=== PATIENT | male | born 1945 | race Caucasian/White ===

== ENCOUNTER 2019-11-27 07:39 | Outpatient (CLI) | payer MEDICARE, SELFPAY ==
--- NOTE | ~2019-11-27 | US_ITS ---
EXAMINATION: US carotid duplex BI DATE: 11/27/2019 08:19 INDICATION: Left carotid bruit. Transient ischemic attack. TECHNIQUE: Grayscale, color Doppler, and pulsed Doppler images of the cervical carotid arteries were obtained. The degree of vessel stenosis is placed in one of the following categories: normal, <50%, 5 0-69%, >=70% but less than near-occlusion, near-occlusion, or total occlusion. Note that percent sten osis relative to normal distal artery lumen diameter is indirectly measured from velocity measurement s as described by Caden, et al. Radiology 2003; 229:340-346. COMPARISON: None. FINDINGS: There is an arrhythmia. RIGHT: The right common carotid artery (CCA) peak systolic velocity (PSV) is 82 cm/s. The right internal car otid artery (ICA) PSV is 142 cm/s. The right ICA end-diastolic velocity (EDV) is 22 cm/s. The right I CA/CCA PSV ratio is 1.7. Grayscale and color Doppler images yield an estimate of >=50% diameter reduc tion from plaque in the ICA. There is antegrade flow in the right vertebral artery. LEFT: The left CCA PSV is 98 cm/s. The left ICA PSV is 158 cm/s. The left ICA EDV is 25 cm/s. The left ICA/ CCA PSV ratio is 1.6. Grayscale and color Doppler images yield an estimate of >=50% diameter reductio n from plaque in the ICA. There is antegrade flow in the left vertebral artery. IMPRESSION: 1. 50-69% stenosis in the right internal carotid artery. 2. 50-69% stenosis in the left internal carotid artery. 3. Arrhythmia. Reviewed, dictated and finalized at location A.
== END 2019-11-27 07:40 | disposition home or self-care (01) ==
PROVIDERS: PCP Internal Medicine; Visit Provider Internal Medicine Cardiovascular Disease
DX: I65.23 Occlusion and stenosis of bilateral carotid arteries (principal); R09.89 Other specified symptoms and signs involving the circulatory and respiratory systems; I49.9 Cardiac arrhythmia, unspecified
CPT/HCPCS: 93880

== ENCOUNTER 2019-12-14 01:25 | Outpatient (CLI) | payer MEDICARE, SELFPAY ==
[2019-12-14 17:42] LABS: SARS-CoV-2 RNA PCR Negative
== END 2019-12-14 01:26 | disposition home or self-care (01) ==
LOC: ANHCOVIDDT 01:25
PROVIDERS: PCP Internal Medicine; Visit Provider Specialist
DX: Z01.812 Encounter for preprocedural laboratory examination (principal); Z20.828 Contact with and (suspected) exposure to other viral communicable diseases
CPT/HCPCS: 87635; C9803; U0003

== ENCOUNTER 2019-12-16 02:57 | Day surgery (SDC) | payer MEDICARE, SELFPAY ==
[2019-12-15 14:40] VITALS: BMI 31.4
[2019-12-16] VITALS (8 sets, daily range): BP systolic 124–184; BP diastolic 64–88; PULSE 61–75; RESP 14–17; TEMP 36.8; O2SAT 94–100
[2019-12-16 07:31] LABS: Basophils Absolute Auto 0.1 K/mm3 (0.0-0.1); Basophils Percent Auto 1.1 % (0.2-1.2); Eosinophils Absolute Auto 0.5 K/mm3 (0-0.3); Eosinophils Percent Auto 4.5 % (0-4.4); Hematocrit 44.7 % (42.0-52.0); Hemoglobin 15.4 g/dL (14.0-18.0); Immature Granulocyte Absolute 0.05 K/mm3 (0.00-0.031); Immature Granulocyte Percent A 0.5 % (0-0.5); Lymphocytes Absolute Auto 1.75 K/mm3 (0.9-3.2); Lymphocytes Percent Auto 16.5 % (18.3-44.2); Mean Corpuscular HGB Conc 34.5 g/dl (32-36); Mean Corpuscular Hemoglobin 31.9 pg (26-34); Mean Corpuscular Volume 92.5 fl (80-100); Mean Platelet Volume 10.6 fl (7.4-10.4); Monocytes Absolute Auto 1.2 K/mm3 (0.1-0.6); Monocytes Percent Auto 11.5 % (2.6-8.5); Neutrophils Percent Auto 65.9 % (45.5-73.1); Platelet Count Result 297 k/mm3 (150-375); Red Blood Count 4.83 M/mm3 (4.6-6.20); Red Cell Distribution Width 13.3 % (11.5-14.5); White Blood Count 10.6 K/mm3 (4.5-10.0)
[2019-12-16 07:41] LABS: INR 1.1; Prothrombin Time 13.7 Seconds (11.1-14.7)
[2019-12-16 07:45] LABS: Anion Gap 9 mmol/L (8-16); Blood Urea Nitrogen 17 mg/dL (9-20); Calcium 10.2 mg/dL (8.4-10.2); Carbon Dioxide 30 mmol/L (22-30); Chloride 102 mmol/L (98-107); Estimated CRCL calculation 78 ml/min; Estimated Glomerular Filt Rate > 60; Glucose 164 mg/dL (75-110); Potassium 4.1 mmol/L (3.4-5.0); Sodium 141 mmol/L (137-145)
--- NOTE | 2019-12-16 08:52 | WPDMODSED ---
Moderate Sedation Note-Pt Data Patient Data Diagnosis: Abnormal nuclear stress test? Coronary artery disease mild aortic valve stenosis atrial fibrillation Present Complaint: this is a 74-year-old man with chronic atrial fibrillation and mild aortic stenosis apparently reporting symptoms of increasing shortness of breath. Because of this a nuclear stress test was done as an outpatient which was remarkable for apical lateral reversible defect. Because of this angiography was recommended. Procedure to be performed/Plan: Coronary angiography Allergies Allergy/AdvReac Type Severity Reaction Status Date / Time baclofen Allergy Unknown syncope Verified 12/03/19 08:53 Home Medications Medication Instructions Recorded Confirmed Type clonazepam 0.5 mg tablet 0.5 mg PO TID tablet 02/19/19 12/15/19 History indomethacin 50 mg capsule 50 mg PO TID PRN #90 cap 10/07/19 12/15/19 Rx apixaban 5 mg tablet 5 mg PO BID #60 tablet 11/12/19 12/15/19 Rx metoprolol tartrate 25 mg tablet 12.5 mg PO BID tablet 12/03/19 12/15/19 History allopurinol 300 mg tablet 300 mg PO DAILY #90 tablet 12/10/19 12/15/19 Rx nifedipine 30 mg tablet,extended 30 mg PO DAILY #90 tablet 12/15/19 12/15/19 Rx release Current Medications: Active Medications Sodium Chloride (Normal Saline Iv) 500 mls @ 100 mls/hr IV CONT .Q5H JACQUELINE Sedation/Anesthesia: No previous sedation/anesthesia problems (including family history). [facility] Past Medical History Medical History (Updated 11/12/19 @ 09:42 by Ronak Madrigal DO) Afib Anxiety Cataract DM w/o complication type II Erectile dysfunction Gout HLD (hyperlipidemia) HTN (hypertension) Mumps Osteoarthritis Surgical History Surgical History (Updated 02/19/19 @ 14:38 by Joy Taylor CMA) H/O cataract extraction H/O hand surgery finger joint replacements History of carpal tunnel release History of eyelid surgery History of knee replacement BL knees History of neck surgery History of repair of rotator cuff Hx of eye surgery BL lens implants Family History Family History (Updated 02/19/19 @ 08:26 by Joy Taylor CMA) Father Family history of lung cancer, Onset Age: 61 Family history of throat cancer, Onset Age: 61 Mother Hypertension HLD (hyperlipidemia) History of open heart surgery TIA (transient ischemic attack) Social History Social History (Updated 02/19/19 @ 14:39 by 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) Smoking status: Never smoker Second hand tobacco smoke exposure: No Alcohol intake: never Substance use: never Substance use type: does not use Living arrangements: alone Gender identity (if verbalized by the patient): Male Spiritual care concerns: No Mod Sed Physical Exam Physical Exam Pre Procedural Exam: Normal: Appearance, Neck, Throat, Airway, Lungs, Heart Size, Heart Rate, Neuro Exam and Extremities and Variation: Heart Rhythm ( irregularly irregular) Hours since solid foods: 12 Hours since liquid intake: 12 Internal Medicine - PN: Obj Da Vital Signs Vital Signs: Vital Signs - 24 hr 12/16/19 07:27 Temperature 36.8 C Pulse Rate 74 Respiratory Rate 14 Blood Pressure 184/86 H Pulse Oximetry 100 Meds/Results Medications: Active Medications Generic Name Dose Route Start Last Admin Trade Name Freq PRN Reason Stop Dose Admin Sodium Chloride 500 mls @ 100 mls/hr 12/16/19 05:50 Normal Saline Iv IV CONT .Q5H JACQUELINE Labs CBC & Chem 7: 12/16/19 07:23 12/16/19 07:23 Labs: Laboratory Results - last 24 hr 12/16/19 12/16/19 12/16/19 07:23 07:23 07:23 WBC 10.6 H RBC 4.83 Hgb 15.4 Hct 44.7 MCV 92.5 MCH 31.9 MCHC 34.5 RDW 13.3 Plt Count 297 MPV 10.6 H Immature Gran % (Auto) 0.5 Neut % (Auto) 65.9 Lymph % (Auto) 16.5 L [place] % (Auto) 11.5 H Eos % (Auto) 4.5 H Baso % (Auto) 1.1 Lymph # (Auto) 1.75 [place] # (Auto) 1.2 H Eos # (Auto
--- NOTE | 2019-12-16 09:21 | WPDCARDPROC ---
Cardiac Cath Procedure Note Date of procedure:: 12/16/19 Performing physician:: Elio Chao MD Indication:: exertional dyspnea mildly abnormal nuclear stress test atrial fibrillation mild aortic stenosis Brief clinical history:: this is a 74-year-old gentleman reporting symptoms of worsening exertional dyspnea. He is not previously known to have coronary disease. A nuclear stress test demonstrated apical lateral reversible defect prompting the recommendation for angiography. Echocardiogram has demonstrated normal left ventricular systolic function and mild aortic valve stenosis. Procedure Procedure performed:: Coronary angiography Angio-Seal to right femoral artery Sedation/Medication given:: fentanyl 50 mg Versed 2 mg case start time 0 900 case end time 9:15 a.m. sedation provided by Kaylah Cortes RN, trained observer Access site:: right femoral artery Estimated blood loss:: 15-20 cc Procedure note:: patient was brought to the cardiac catheterization lab in the postabsorptive state the right femoral triangle was prepared and draped in the usual fashion. Anesthesia was provided with 1% lidocaine infiltrated locally. Using the modified Seldinger technique the right femoral artery was punctured and a 5 [place] vascular sheath was placed. After this coronary angiography was carried out. I used a 5 [place] FL4 catheter to engage inject the left coronary artery. A 5 [place] JR4 catheter was used to engage inject the right coronary artery. The angiograms were then reviewed and the case was terminated. After this an angiogram was done of the femoral artery through the sheath and a 6 [place] Angio-Seal device was used to provide hemostasis. He left the catheterization lab in stable condition there were no apparent procedural complications and there was no evidence of a groin hematoma upon leaving the catholic priest. Findings:: Hemodynamics: Central aortic pressure was 162/82 the left main coronary artery and proximal LAD are heavily calcified. The left main is free of lesions. The left anterior descending is a moderate caliber artery extending down to and around the apex. There are mild luminal irregularities in the proximal 3rd of the LAD but no functionally significant lesions are seen despite the vessel being heavily calcified. Circumflex is a moderate caliber artery giving rise to the marginal branches. Most of the circumflex shows only modest luminal irregularities. A very high rather small 1st OM branch has a proximal 80% stenosis seen only in the AP caudal projection. The remainder of the circumflex has no significant disease. This branch that is described is very small the right coronary artery is a [id number] caliber vessel dominant to the posterior circulation the right coronary has modest luminal irregularities no functionally significant lesions are identified. The RPDA is normal the RPL is non diseased and relatively small Conclusion:: 1. mild coronary artery disease at this time with the only significant lesion being an 80% stenosis in the high 1st OM branch of the circumflex which is quite small. 2. Heavily calcified left main and proximal LAD 3. left ventricle was not study during this procedure as the patient had a recent echocardiogram in the office demonstrating modest aortic stenosis and normal left ventricular systolic function 4. successful Angio-Seal to provide hemostasis at the at the conclusion of the procedure Elio Chao MD [facility]
--- NOTE | 2019-12-16 12:33 | SUR.PHASEII ---
Pt. given post-procedure discharge education following cardiac cath. Pt. verbalizes understanding of discharge education. Pt. escorted to private vehicle via wheelchair in no apparent distress. Angioseal site noted to have no evidence of bleeding or hematoma upon discharge.
== END 2019-12-16 12:34 | disposition home or self-care (01) ==
PROVIDERS: PCP Internal Medicine; Visit Provider Specialist
PROC: 4A023N7 Measurement of Cardiac Sampling and Pressure, Left Heart, Percutaneous Approach (ICD-10-PCS; CPT 93452; principal; 2019-12-16 08:30)
DX: I25.10 Atherosclerotic heart disease of native coronary artery without angina pectoris (principal); R94.39 Abnormal result of other cardiovascular function study; R06.09 Other forms of dyspnea; I48.20 Chronic atrial fibrillation, unspecified; I35.0 Nonrheumatic aortic (valve) stenosis; Z79.01 Long term (current) use of anticoagulants; E11.9 Type 2 diabetes mellitus without complications; I10 Essential (primary) hypertension; M10.9 Gout, unspecified; F41.9 Anxiety disorder, unspecified; H26.9 Unspecified cataract
CPT/HCPCS: 36415; 80048; 85025; 85610; 93458; C1760; C1887; C1894; G0269; J1644; J2250; J3010; J7040

== ENCOUNTER 2020-07-11 12:04 | Outpatient (CLI) | payer MEDICARE, SELFPAY ==
[2020-07-11 12:49] LABS: Hematocrit 43.2 % (42.0-52.0); Hemoglobin 14.6 g/dL (14.0-18.0); Mean Corpuscular HGB Conc 33.8 g/dl (32-36); Mean Corpuscular Hemoglobin 32.1 pg (26-34); Mean Corpuscular Volume 94.9 fl (80-100); Mean Platelet Volume 10.8 fl (7.4-10.4); Platelet Count Result 261 k/mm3 (150-375); Red Blood Count 4.55 M/mm3 (4.6-6.20); Red Cell Distribution Width 14.3 % (11.5-14.5); White Blood Count 8.2 K/mm3 (4.5-10.0)
[2020-07-11 13:16] LABS: Anion Gap 8 mmol/L (8-16); Blood Urea Nitrogen 19 mg/dL (9-20); Carbon Dioxide 27 mmol/L (22-30); Chloride 105 mmol/L (98-107); Cholesterol 194 mg/dL (0-200); Estimated Glomerular Filt Rate 59; Glucose 115 mg/dL (75-110); HDL Direct 66 mg/dL; Potassium 4.1 mmol/L (3.4-5.0); Sodium 140 mmol/L (137-145); Triglycerides 69 mg/dL (<150); Uric Acid 6.6 mg/dL (3.5-8.5)
[2020-07-11 13:26] LABS: LDL Cholesterol Direct 105 mg/dL
[2020-07-11 13:43] LABS: Hemoglobin A1C 5.7 % (<5.7)
== END 2020-07-11 12:05 | disposition home or self-care (01) ==
LOC: ANHLAB 12:08
PROVIDERS: PCP Family Medicine; Visit Provider Family Medicine
DX: E11.9 Type 2 diabetes mellitus without complications (principal); Z13.220 Encounter for screening for lipoid disorders; E78.2 Mixed hyperlipidemia; M10.079 Idiopathic gout, unspecified ankle and foot; I10 Essential (primary) hypertension
CPT/HCPCS: 36415; 80048; 80061; 83036; 84550; 85027

== ENCOUNTER 2020-07-20 19:03 | Observation (INO) | payer MEDICARE, SELFPAY ==
--- NOTE | ~2020-07-20 | MR_ITS ---
EXAMINATION: MRA brain wo con DATE: 07/21/2020 12:19 INDICATION: Aphasia. TECHNIQUE: Magnetic resonance angiography (MRA) of the brain was performed without intravenous contra st with T1-weighted SPGR by the 3D [id number] technique. Maximum intensity projection 3D-reconstr uctions were obtained. COMPARISON: CTA 07/20/2020 FINDINGS: There is no significant stenosis of basilar artery or the posterior cerebral arteries. Right P1 poste rior cerebral artery segment is absent, a normal variant. The posterior communicating arteries are no rmal. There is no significant stenosis of the intracranial internal carotid arteries or anterior cere bral arteries. 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 Anterior communicating a rtery is normal. There is no aneurysm. IMPRESSION: 1. Acute total occlusion of a left M2 middle cerebral artery. Reviewed, dictated and finalized at location B.
--- NOTE | ~2020-07-20 | CT_ITS ---
EXAMINATION: CTA brain carotid DATE: 07/20/2020 19:45 CDT INDICATION: Aphasia TECHNIQUE: Computed tomographic angiography (CTA) of the head was performed without and with 100 mL O mnipaque-350 intravenous contrast. CTA of the neck was performed with intravenous contrast. The dose- length product was 1819.17 mGy-cm. Maximum intensity projection and volume rendered 3D-reconstruction s were created by the technologist on a separate workstation. COMPARISON: CT dated 10/24/2013. FINDINGS: HEAD CT/CTA: Mild generalized atrophy. There are chronic right frontal and left parietal infarctions. There are scattered moderate periventricular and subcortical white matter changes, most likely relat ed to small vessel ischemic disease (microangiopathy). No ventriculomegaly or midline shift. Basilar cisterns are patent. There is intracranial atherosclerosis. No acute intracranial hemorrhage, infarct ion, mass or mass effect. Mastoids are pneumatized. No depressed skull fractures. No significant abno rmality of the visualized paranasal sinuses. The vertebral arteries are symmetric. There is mild atherosclerotic changes of the cavernous segments of the internal carotid arteries without significant stenosis, occlusion or aneurysm. The anterior, middle and posterior cerebral arteries are symmetric. NECK CTA: There are scattered borderline sized cervical lymph nodes, likely reactive. No abnormality of the mucosal or parapharyngeal spaces. Thyroid gland is unremarkable. Lung apices are normal. There is cervical fusion at C3-C5. There is severe cervical spondylosis. There is 28% stenosis of the proximal right internal carotid artery relative to normal distal artery lumen diameter (NASCET criteria). There is 42% stenosis of the proximal left internal carotid artery relative to normal distal artery lumen diameter. IMPRESSION: 1. 28% stenosis of the proximal right internal carotid artery relative to normal distal artery lumen diameter (NASCET criteria). 2. 42% stenosis of the proximal left internal carotid artery relative to normal distal artery lumen d iameter. 3: No acute intracranial abnormality. 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 5: No significant intracranial vascular abnormality. Mild atherosclerotic changes without significant stenosis, occlusion or aneurysm. Reviewed, dictated and finalized at location A. IMPRESSION: 1. 28% stenosis of the proximal right internal carotid artery relative to eric l distal artery lumen diameter (NASCET criteria). 2. 42% stenosis of the proximal left internal carotid artery relative to normal distal artery lumen diameter. 3: No acute intracranial abnormality. 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 5: No significant intracranial vascular abnormality. Mild atherosclerotic valenzuela es without significant stenosis, occlusion or aneurysm.
--- NOTE | ~2020-07-20 | XR_ITS ---
XR chest 1V portable 07/20/2020 19:38 Indication: Dyspnea Procedure: AP portable chest Comparison: 11/12/2014 Findings: Cardiomegaly. Mild interstitial edema. No significant pleural effusion or pneumothorax. No acute osseous abnormality. Impression: 1: Cardiomegaly with mild interstitial edema. Reviewed, dictated and finalized at location A. Impression: 1: Cardiomegaly with mild interstitial edema.
[2020-07-20 18:59] VITALS: BP 178/91; PULSE 91; RESP 21; TEMP 36.7; O2SAT 96
--- NOTE | 2020-07-20 19:10 | ECG_ITS ---
Measurements Intervals [place] Rate: 83 P: MN: 0 QRS: 1 QRSD: 96 T: 77 QT: 375 QTc: 443 Interpretive Statements ATRIAL FIBRILLATION NONSPECIFIC ST & T-WAVE ABNORMALITY- LAT/HIGH LAT LEADS BASELINE ARTIFACT- I, II, III, AVR, AVL, AVF ABNORMAL ECG Electronically Signed On 07-20-2020 20:00:19 CDT by Aj Alcazar D.O.
--- NOTE | 2020-07-20 19:21 | ED.AMS ---
HPI - Altered Mental Status General Chief Complaint: Altered Mental Status Stated Complaint: ams Time Seen by Provider: 07/20/20 19:10 Source: patient Mode of arrival: ambulatory Limitations: no limitations History of Present Illness HPI narrative: Patient is a 74-year-old male brought in due to aphasia. According to daughter, he started talking gibberish when I called him around 9 AM this morning, so I came home at 1 PM to check up on him and continues to talk gibberish . Patient currently is a poor historian due to aphasia. According to daughter his only medical problem is high blood pressure and nothing else, he is very healthy he just had a heart cath done and was told that he had a heart of a 20-year-old . She also states that the patient had been drinking yesterday due to recent of his friend, and took his trazodone at night, which she states that she was reading up on it and could have caused his confusion. Related Data Home Medications Medication Instructions Recorded Confirmed aspirin 81 mg tablet,delayed 81 mg PO DAILY 06/23/20 07/14/20 release Allergies Allergy/AdvReac Type Severity Reaction Status Date / Time baclofen Allergy Unknown syncope Verified 07/20/20 19:50 Review of Systems Review of Systems: ROS unobtainable: Yes unobtainable due to medical condition and unobtainable due to mental status PMFSH Past Medical History Medical History Afib Anxiety BMI 27.0-27.9,adult Cataract Diabetes type 2, controlled DM w/o complication type II Erectile dysfunction Gout HLD (hyperlipidemia) HTN (hypertension) Insomnia Mumps Osteoarthritis Surgical History Surgical History H/O cataract extraction H/O hand surgery finger joint replacements History of carpal tunnel release History of eyelid surgery History of knee replacement BL knees History of neck surgery History of repair of rotator cuff Hx of eye surgery BL lens implants Family History Family History Father Family history of lung cancer, Onset Age: 61 Family history of throat cancer, Onset Age: 61 Mother Hypertension HLD (hyperlipidemia) History of open heart surgery TIA (transient ischemic attack) Social History Social History Second hand tobacco smoke exposure: No Alcohol intake: never Substance use: never Substance use type: does not use Gender identity (if verbalized by the patient): Male Spiritual care concerns: No Exam Const: General: confusion Orientation/consciousness: patient oriented x3 Limitations: altered mental status HENMT: Head: normal to inspection, normocephalic and atraumatic Ears: hearing grossly normal bilaterally, TM normal on the right and TM normal on the left General nose exam: Normal external nose present, Normal nares present and No nasal discharge present Face and sinus: normal facial exam Mouth: Yes Normal oral and palatal mucosa present, Yes lip normal, Yes tongue normal and Yes oropharynx normal Throat: posterior oropharynx normal, tonsils normal and uvula midline Eyes: General: appearance normal, both eyes and all related structures Pupils: Equal, round and reactive pupils present EOM: EOMs intact bilaterally Neck: Neck: normal visual inspection, full ROM, no lymphadenopathy and no meningeal signs Chest: Chest palpation & inspection: normal inspection of the chest Resp: Effort & Inspection: normal respiratory effort, able to speak in complete sentences, no respiratory distress and not tachypneic Auscultation: clear to auscultation bilaterally, no crackles, no rales, no rhonchi and no wheezes Cardio: Rate: regular rate Rhythm: regular rhythm GI: Inspection: normal to inspection GI Palp: No abdominal tenderness, Yes Soft to palpation, N
[2020-07-20 19:50] LABS: Basophils Absolute Auto 0.1 K/mm3 (0.0-0.1); Basophils Percent Auto 1.3 % (0.2-1.2); Eosinophils Absolute Auto 0.6 K/mm3 (0-0.3); Eosinophils Percent Auto 5.6 % (0-4.4); Hematocrit 42.3 % (42.0-52.0); Hemoglobin 14.4 g/dL (14.0-18.0); Immature Granulocyte Absolute 0.04 K/mm3 (0.00-0.031); Immature Granulocyte Percent A 0.4 % (0-0.5); Lymphocytes Absolute Auto 1.59 K/mm3 (0.9-3.2); Lymphocytes Percent Auto 16.2 % (18.3-44.2); Mean Platelet Volume 11.1 fl (7.4-10.4); Monocytes Absolute Auto 1.1 K/mm3 (0.1-0.6); Neutrophils Absolute Auto 6.4 K/mm3 (1.3-6.7); Neutrophils Percent Auto 65.5 % (45.5-73.1); Platelet Count Result 241 k/mm3 (150-375); White Blood Count 9.8 K/mm3 (4.5-10.0)
[2020-07-20 20:01] LABS: Alanine Aminotransferase 22 U/L (4-50); Albumin Level 4.5 g/dL (3.5-5.1); Alkaline Phosphatase 79 U/L (38-126); Anion Gap 12 mmol/L (8-16); Aspartate Amino Transferase 33 U/L (17-59); Bilirubin,Total 0.4 mg/dL (0.2-1.3); Blood Urea Nitrogen 17 mg/dL (9-20); Calcium 10.4 mg/dL (8.4-10.2); Carbon Dioxide 22 mmol/L (22-30); Chloride 105 mmol/L (98-107); Estimated CRCL calculation 54 ml/min; Estimated Glomerular Filt Rate 59; Glucose 131 mg/dL (75-110); Potassium 3.8 mmol/L (3.4-5.0); Prothrombin Time 13.4 Seconds (11.1-14.7); Sodium 139 mmol/L (137-145)
[2020-07-20 20:02] LABS: Partial Thromboplastin Time 30.2 SECONDS (22.3-36.8)
[2020-07-20 20:04] LABS: Ethanol 16 mg/dL (<10)
[2020-07-20 20:12] LABS: Troponin I < 0.012 ng/mL (0.000-0.034)
[2020-07-20 20:39] VITALS: BP 146/96; PULSE 68; RESP 20; O2SAT 96
[2020-07-20] MEDS: ASPIRIN 81 MG CHEWABLE TABLET 324 MG PO (20:59)
[2020-07-20 21:28] LABS: Add Urine Microscopic? NO; Appearance Urine Clear (Clear); Bilirubin Urine Negative (Negative); Blood Urine Negative (Negative); Color Urine Colorless (Yellow); Glucose Urine UA Negative (Negative); Ketones Urine Negative (Negative); Leukocyte Esterase Ur Negative LEU/UL (Negative); Nitrate Urine Negative (Negative); Protein Urine Negative (Negative); Specific Grav Ur 1.017 (1.001-1.035); Urobilinogen Urine Negative mg/dL (<2.0)
--- NOTE | 2020-07-20 22:06 | PM.IMHP ---
H&P: HPI History of Present Illness Date/Time: 07/20/20 22:06 Chief Complaint: Altered speech Narrative: This is a 74-year-old male with past medical history significant for hypertension, gout, degenerative joint disease, bilateral knee replacement. Patient was recently started on trazodone for sleep patient is unable to give any history due to altered mental status patient is incoherent not making sense his long-time friend/ that is sitting next to him states that patient was drinking all day the day before and just had been started on these new medication which is trazodone. Today in the morning he was doing okay prior to her going to work at around noon time she call him and he was not making sense on the phone speaking gibberish she thought he was playing a joke however when patient continue on a 2nd call she realized that something must be wrong and decided to come home and take him to the hospital. Patient has been his usual state of health just prior to these I am unable to obtain any history from the patient most of the history has been obtained through his and emergency room medical records. Preliminary workup was significant for CT of head with old strokes in the frontal and parietal regions. A CBC and BMP were unremarkable. states that the patient should be on a blood thinner however he does not take it. Review of Systems Review of Systems: Narrative: History has been obtained from a medical records ROS unobtainable: Yes unobtainable due to medical condition PMFSH Past Medical History Medical History Afib Anxiety BMI 27.0-27.9,adult Cataract Diabetes type 2, controlled DM w/o complication type II Erectile dysfunction Gout HLD (hyperlipidemia) HTN (hypertension) Insomnia Mumps Osteoarthritis Surgical History Surgical History H/O cataract extraction H/O hand surgery finger joint replacements History of carpal tunnel release History of eyelid surgery History of knee replacement BL knees History of neck surgery History of repair of rotator cuff Hx of eye surgery BL lens implants Family History Family History Father Family history of lung cancer, Onset Age: 61 Family history of throat cancer, Onset Age: 61 Mother Hypertension HLD (hyperlipidemia) History of open heart surgery TIA (transient ischemic attack) Social History Social History Second hand tobacco smoke exposure: No Alcohol intake: never Substance use: never Substance use type: does not use Gender identity (if verbalized by the patient): Male Spiritual care concerns: No Meds Home Medications and Allergies Home Medications Medication Instructions Recorded Confirmed Type indomethacin 50 mg capsule 50 mg PO TID PRN #90 cap 04/08/20 07/14/20 Rx allopurinol 300 mg tablet 300 mg PO DAILY #90 tablet 06/10/20 07/14/20 Rx nifedipine 30 mg tablet,extended 30 mg PO DAILY #90 tablet 06/20/20 07/14/20 Rx release aspirin 81 mg tablet,delayed 81 mg PO DAILY 06/23/20 07/14/20 History release trazodone 50 mg tablet 50 mg PO QHS PRN #30 tablet 07/14/20 07/14/20 Rx Allergies Allergy/AdvReac Type Severity Reaction Status Date / Time baclofen Allergy Unknown syncope Verified 07/20/20 19:50 Vital Signs Vital Signs - 24 hr 07/20/20 18:59 07/20/20 20:39 Temperature 98.0 F Pulse Rate 91 68 Respiratory Rate 21 H 20 Blood Pressure 178/91 H 146/96 H Pulse Oximetry 96 96 Exam Narrative: Exam Narrative: Patient is laying in gurney Const: General: comfortable, no acute distress, well developed, alert, awake, Physically active and other (Fidgety) Nutritional Appearance: average body habitus Orientation/consciousness: oriented to person and oriented to place HENMT:
[2020-07-20 23:24] VITALS: BP 181/100; PULSE 68; RESP 18; O2SAT 99
[2020-07-21] VITALS (10 sets, daily range): BP systolic 146–186; BP diastolic 72–97; PULSE 61–99; RESP 20; TEMP 35.7–36.7; O2SAT 99–100; BMI 25.1
--- NOTE | 2020-07-21 | ECHO_ITS ---
Patient Info Name: Bharat Jones Age: 74 years : 1945 Gender: Male Ht: 68 in Wt: 203 lbs BSA: 2.13 m2 HR: 65 bpm BP: 172 / 72 mmHg Technical Quality: Good Exam Date: 07/21/2020 8:35 AM Exam Location: [facility] Pulmonary Exam Room: 203 Patient Status: Outpatient Admit Date: 07/20/2020 Staff Ordering Physician: Romel Huynh MD [employer] Coordinator: LUIS ANGEL Attending Provider: Domingo Kennedy MD Referring Physician: Lino SHIN; Exam Type: CA echo doppler color flow Study Info Indications - CVA Complete two-dimensional, color flow and Doppler transthoracic echocardiogram is performed. Summary 1. Complete two-dimensional, color flow and Doppler transthoracic echocardiogram is performed. 2. Left ventricular chamber dimension is normal. 3. Left ventricular systolic function is normal, estimated at 60-65%. 4. There is mildly increased left ventricular wall thickness. 5. The left ventricular diastolic function is abnormal. 6. E/e' 15 is elevated. 7. Atrial fibrillation. 8. Left atrial chamber dimension is severely enlarged. 9. Right atrial chamber dimension is moderately enlarged. 10. There is severe aortic valve sclerosis. 11. There is moderate aortic valve stenosis with a peak velocity of 258 cm/s, mean gradient of 12 mmHg, and aortic valve area of 1.4 cm2. 12. There is trace aortic valve regurgitation. 13. The mitral valve has severely calcified leaflets and moderately calcified annulus. 14. There is mild to moderate mitral valve regurgitation. 15. Mild pulmonary hypertension, estimated pulmonary arterial systolic pressure is 48 mmHg. Left Ventricle E/e' 15 is elevated. Atrial fibrillation. Left ventricular chamber dimension is normal. Left ventricular systolic function is normal, estimated at 60-65%. There is mildly increased left ventricular wall thickness. The left ventricular diastolic function is abnormal. Right Ventricle Right ventricular chamber dimension is normal. Right ventricular systolic function is normal. Left Atria Left atrial chamber dimension is severely enlarged. Right Atria Right atrial chamber dimension is moderately enlarged. Aortic Valve The aortic valve is trileaflet. There is severe aortic valve sclerosis. There is moderate aortic valve stenosis with a peak velocity of 258 cm/s, mean gradient of 12 mmHg, and aortic valve area of 1.4 cm2. There is trace aortic valve regurgitation. Pulmonic Valve There is no pulmonic regurgitation. Mitral Valve The mitral valve has severely calcified leaflets and moderately calcified annulus. There is no mitral valve stenosis. There is mild to moderate mitral valve regurgitation. Tricuspid Valve There is no tricuspid valve regurgitation. Mild pulmonary hypertension, estimated pulmonary arterial systolic pressure is 48 mmHg. Pericardium/Pleural There is no pericardial effusion. Inferior Vena Cava Normal inferior vena cava with >50% collapse upon inspiration consistent with normal right atrial pressure, 5 mmHg. Aorta The aortic root size at the sinus of Valsalva is normal. Left Ventricular Outflow Tract Name Value Normal LVOT 2D LVOT Diameter 2.0 cm LVOT D
--- NOTE | 2020-07-21 00:36 | PC.NURSE ---
This patient, Bharat Jones, was admitted to IMU Room 203-01 on 07/21/20 at 0035. Patient/family oriented to hospital policies and general routines including ID bracelet, bed and alarms, visiting hours, pain management, procedures, bathroom and other care routines, personal items, smoking policy, room service/diet, and visiting hours. Information on how to activate the Rapid Response Team has been discussed. Patient/Family are encouraged to report perceived risks to care and to ask questions if they do not understand what they are told or what they should do.
[2020-07-21] MEDS: APIXABAN 5 MG TABLET PO (09:11)
[2020-07-21] MEDS: ASPIRIN 81 MG ENTERIC TABLET PO (09:11)
[2020-07-21] MEDS: allopurinoL 300 MG TABLET PO (09:11)
[2020-07-21] MEDS: NIFEdipine 30 MG TAB.ER.24 PO (09:11)
[2020-07-21 10:04] LABS: Hematocrit 42.4 % (42.0-52.0); Hemoglobin 14.6 g/dL (14.0-18.0); Mean Corpuscular HGB Conc 34.4 g/dl (32-36); Platelet Count Result 224 k/mm3 (150-375); Red Blood Count 4.56 M/mm3 (4.6-6.20); Red Cell Distribution Width 13.7 % (11.5-14.5); White Blood Count 8.5 K/mm3 (4.5-10.0)
[2020-07-21 10:15] LABS: Anion Gap 8 mmol/L (8-16); Blood Urea Nitrogen 14 mg/dL (9-20); Calcium 9.9 mg/dL (8.4-10.2); Carbon Dioxide 24 mmol/L (22-30); Chloride 107 mmol/L (98-107); Estimated CRCL calculation 58 ml/min; Estimated Glomerular Filt Rate > 60; Glucose 120 mg/dL (75-110); Potassium 3.8 mmol/L (3.4-5.0); Sodium 139 mmol/L (137-145)
[2020-07-21 10:50] LABS: Magnesium 1.8 mg/dL (1.6-2.3)
--- NOTE | 2020-07-21 13:55 | PM.DS ---
DS: Admitting Diagnosis Admitting Diagnosis Admitting Diagnosis: Altered speech DS: Summary Hospital Course Reason for hospitalization: Chief Complaint: Altered speech Narrative: This is a 74-year-old male with past medical history significant for hypertension, gout, degenerative joint disease, bilateral knee replacement. Patient was recently started on trazodone for sleep patient is unable to give any history due to altered mental status patient is incoherent not making sense his long-time friend/ that is sitting next to him states that patient was drinking all day the day before and just had been started on these new medication which is trazodone. Today in the morning he was doing okay prior to her going to work at around noon time she call him and he was not making sense on the phone speaking gibberish she thought he was playing a joke however when patient continue on a 2nd call she realized that something must be wrong and decided to come home and take him to the hospital. Patient has been his usual state of health just prior to these I am unable to obtain any history from the patient most of the history has been obtained through his and emergency room medical records. Preliminary workup was significant for CT of head with old strokes in the frontal and parietal regions. A CBC and BMP were unremarkable. states that the patient should be on a blood thinner however he does not take it. Hospital Course: Patient with history of A. Fib had not been taking his Eliquis as given and presented to ER with slurred speech and confusion, MRI of brain showed patient has stroke, he clinically doing fine and was able to work PT without any difficulty, I have spoken to the patient in detail and instructed him to take his Eliquis and aspirin as given, patient is instructed to follow up with his primary care provider as soon as possible, if any symptoms redevelop to go to nearest ER. Patient is instructed not to take indomethacin with Eliquis. Cardiac ECHO showed normal EF however patient has moderate aortic stenosis, I have spoken to patient and his to follow up with his hereditary cancer program coordinator as soon possible for further recommendation, may need surgical repair, patient stats he was seen his hereditary cancer program coordinator last month and they will follow up as soon as possible. Time Spent with Patient Time attestation: Total time spent providing and/or coordinating discharge services: Exam Narrative: Exam Narrative: Patient is comfortable, NAD HEENT: eyes are clear and none icteric LUNGS:CTA HEART: RR S1S2 ABD: BS+, Soft and nontender Lower extremities: no edema SKIN: nonjaundiced Neuro: grossly intact. DS: Data Data Completed and Pending Labs on day of discharge: Labs from last 24 hours 07/21/20 07/21/20 07/21/20 09:52 09:52 09:52 WBC 8.5 RBC 4.56 L Hgb 14.6 Hct 42.4 MCV 93.0 MCH 32.0 MCHC 34.4 RDW 13.7 Plt Count 224 MPV 11.0 H Immature Gran % (Auto) Neut % (Auto) Lymph % (Auto) Cross % (Auto) Eos % (Auto) Baso % (Auto) Lymph # (Auto) Cross # (Auto) Eos # (Auto) Baso # (Auto) Abs Immat Gran (auto) Absolute Neuts (auto) Absolute Nucleated RBC Nucleated RBC % PT INR APTT Sodium 139 Potassium 3.8 Chloride 107 Carbon Dioxide 24 Anion Gap 8 BUN 14 Creatinine 1.10 Estim Creat Clear Calc 58 Estimated GFR > 60 Glucose 120 H Calcium 9.9 Magnesium 1.8 Total Bilirubin AST ALT Alkaline Phosphatase Troponin I Total Protein Albumin Urine Color Urine Appearance Urine pH Ur Specific [place] Urine Protein Urine Glucose (UA) Urine Ketones Ur Blood (Man) Urine Nitrate Urine Bilirubin Urine Urobilinogen Leukocyte Esterase Rfl Ethyl Alcohol 07/20/20 07/20/20 07/20/20 21:13 19:36 19:36 WBC RBC Hgb Hct MCV MCH MCHC RDW Plt Count
--- NOTE | 2020-07-21 14:44 | WPDNEURCNPN ---
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 insulin use: without group home use Diabetes mellitus complication status: without complication Qualified Code(s): E11.9 - Type 2 diabetes mellitus without complications Code(s): E11.9 - Type 2 diabetes mellitus without complications Status: Acute (4) HTN (hypertension): Qualifiers: Hypertension type: essential hypertension Qualified Code(s): I10 - Essential (primary) hypertension Code(s): I10 - Essential (primary) hypertension Status: Acute (5) HLD (hyperlipidemia): Qualifiers: Hyperlipidemia type: mixed hyperlipidemia Qualified Code(s): E78.2 - Mixed hyperlipidemia Code(s): E78.5 - Hyperlipidemia, unspecified Status: Acute Additional Plan Status post stroke with atrial fibrillation patient will be started on his anticoagulation therapy along with the aspirin for the time being Consult date: 07/21/20 Time Seen: 12:30 HPI: Bharat Jones is a 74 year old male admitted to the hospital for the complaints of change in the speech and with the ongoing history of 1. Hypertension 2. Gout 3. Degenerative joint disease 4. History of bilateral total knee arthroplasty. Patient had recently been started on trazodone for sleep and at the time of initial evaluation he was somewhat incoherent not making any sense his was sitting next to him that he was drinking all day before and has been started on the new medication as well prior to going to work at around noon time she called him and he was not making sense on the telephone is speaking gibberish but on 2nd call she realized that something was wrong and she decided to come home and take him to the hospital initial CT scan of the head in the Emergency Room documented the old stroke in the frontal and parietal region and CBC and BMP were normal he did have ongoing history of 1. Atrial fibrillation 2. Anxiety 3. Diabetes mellitus 4. Hypertension 5. Hyperlipidemia 6. 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 Review of Systems Review of Systems: All systems reviewed & are unremarkable except as noted in HPI and below PMFSH Past Medical History Medical History Afib Anxiety BMI 27.0-27.9,adult Cataract Diabetes type 2, controlled DM w/o complication type II Erectile dysfunction Gout HLD (hyperlipidemia) HTN (hypertension) Insomnia Mumps Osteoarthritis Surgical History Surgical History H/O cataract extraction H/O hand surgery finger joint replacements History of carpal tunnel release History of eyelid surgery History of knee replacement BL knees History of neck surgery Hist
== END 2020-07-21 15:59 | disposition home or self-care (01) ==
LOC: ANHED 20:23 → ANHIMU 07-21 01:10
PROVIDERS: Admitting Provider Internal Medicine; Emergency Provider Emergency Medicine; PCP Family Medicine; Visit Provider Family Medicine
DX: I63.9 Cerebral infarction, unspecified (principal); R47.01 Aphasia; I10 Essential (primary) hypertension; E78.5 Hyperlipidemia, unspecified; E11.9 Type 2 diabetes mellitus without complications; I48.91 Unspecified atrial fibrillation; I35.0 Nonrheumatic aortic (valve) stenosis; Z79.01 Long term (current) use of anticoagulants; Z91.14 Patient's other noncompliance with medication regimen; Z96.653 Presence of artificial knee joint, bilateral; Z79.899 Other long term (current) drug therapy
CPT/HCPCS: 36415; 70496; 70498; 70544; 71045; 80048; 80053; 80307; 81003; 83735; 84484; 85025; 85027; 85610; 85730; 93005; 93306; 97161; 97165; 99285; A9270; G0378; Q9967

== ENCOUNTER 2020-11-24 07:47 | Outpatient (RCR) | payer MEDICARE, MEDICAID, SELFPAY ==
--- NOTE | 2020-08-25 12:59 | PTOPEVAL ---
PHYSICAL THERAPY EVALUATION AND DISCHARGE Thank you for referring Bharat Jones to [facility].? I do not recommend further skilled therapy beyond initial evaluation. He was provided with HEP to address minor balance deficits. Please review, sign, date and return this plan of care CHANELLE. I agree with and certify that the following plan of care is medically necessary. Referring Physician Date Attending Provider: Milad Baker MD Evaluation Outpatient Past Medical History Neurological History Hx Cerebrovascular Accident (CVA) Yes: 07-20-20 Hx Other Neurological Disorders Yes: insomia Cardiovascular History Hx Atrial Fibrillation Yes Hx Hypercholesterolemia Yes Hx Hypertension Yes Musculoskeletal History Hx Gout Yes Hx Other Musculoskeletal Disorders Yes: osteoarthritis Hematological History Hx Other Hematological Disorders Yes: mumps Endocrine History Hx Diabetes Yes Integumentary History Hx Other Skin Disorders Yes: skin cancer Diagnosis CVA Onset 1 month ago Subjective Information Had a CVA. He has expressive Query Text:As Reported By Patient/ aphasia. 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 He reports that he requires no physical assist and reports that he does all ADLs independently. Pain Assessment Timing of Pain Assessment Timing of Pain Assessment Assessment Self Report Self Report Pain Level 0 Pain Score Pain Score 0: Self Report Lower Extremity Muscle Strength Testing General Lower Extremity Strength Gross Lower Extremity Strength grossly WNL; right dorsiflexion: 3+/5 Balance Assessment Mc Balance Assessment 49/56 Time Up Go (TUG) Timed Up and Go Test (TUG) (Seconds) 12 Assistive Devices None 5 Time Sit to Stand Time in Seconds 14 Functional Gait Assessment 26/30 Gait Assessment 2 Minute Walk Total Distance Walked (feet) 394 2 Minute Walk Gait Speed Score (feet/ 3.28 second) 2 Minute Walk Test Comments mildly decreased right step length General Exercise General Exercises Side Bilateral Exercise Location balance Exercise Type Active,Stabilization Exercise Description for HEP: to perform at counter Query Text:Record Sets, Reps, : Resistance, and Position -SLS -tandem stance -side stepping -standing marching
--- NOTE | 2020-08-25 13:27 | STOPEVAL ---
SPEECH THERAPY INITIAL EVALUATION: Thank you for referring Bharat Jones to [facility].? The patient is scheduled to be seen for therapy? 2x/week for 4 weeks. Please review, sign, date and return this plan of care CHANELLE. I agree with and certify that the following plan of care is medically necessary. Referring Physician Date Attending Provider: Milad Baker MD Outpatient Past Medical History Neurological History Hx Cerebrovascular Accident (CVA) Yes: 07-20-20 Hx Other Neurological Disorders Yes: insomia Cardiovascular History Hx Atrial Fibrillation Yes Hx Hypercholesterolemia Yes Hx Hypertension Yes Musculoskeletal History Hx Gout Yes Hx Other Musculoskeletal Disorders Yes: osteoarthritis Hematological History Hx Other Hematological Disorders Yes: mumps Endocrine History Hx Diabetes Yes Integumentary History Hx Other Skin Disorders Yes: skin cancer Prior Level of Function Activity Level (Last 3 Months) 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 Hand Dominance Right Functional Cognition (Planning, Shopping Independent , Taking Medications) Shopping Yes Driving Yes Home Setting Support Available Local Family Support Cargiver Responsibilities Comment lives with ex Anna; 1 son and 2 granddaughters Prior Swallow Level Prior Intake Method Oral Prior Diet Regular (Level 7 Diet) Prior Liquid Consistency Thin (Level 0 Diet) Prior Cognition/Communication Prior Communication Level No Impairment Prior Cognitive Function Able to Function Independently Prior Ability to Handle Finances Independent Comments Additional Prior Level of Function I just can't think now . Comments per pt's son, its mostly his speech and memory Language Evaluation Auditory Comprehension Moderate Yes/No Questions (% Accuracy (0 80 -100)) Complex Yes/No Questions (% Accuracy (0- 25 100)) Auditory Comprehension of Two-Step 50 Directives (% Accuracy (0-100)) Response Latency Mild Deficits Factors Limiting Auditory Comprehension Aphasia Overall Auditory Comprehension Ability Moderate Deficits Additional Auditory Comprehension easily anxious and upset Comments Reading Comprehension Name Recognition Yes Numeral Comprehension (% Accuracy (0-100 29 )) Numeral Comprehension Comments able to match single words ( Field of 2): 100% accuracy Letter Comprehension (% Accuracy (0-100) 0 ) Single Word Comprehension (% Accuracy (0 75 -100)) C
--- NOTE | 2020-09-02 11:29 | OTOPEVAL ---
OCCUPATIONAL THERAPY INITIAL EVALUATION/DISCHARGE SUMMARY: 09/02/2020 Thank you for referring Bharat Jones to [facility].? I do not recommend skilled Occupational Therapy beyond initial evaluation due to no limitations with functional ADLs and activities. Please review, sign, date and return this plan of care CHANELLE. I agree with and certify that the following plan of care is medically necessary. Referring Physician Date Attending Provider: Milad Baker MD *OT Outpatient Evaluation/Discharge Summary Start: 09/02/20 07:29 Freq: Status: Active Protocol: Document 09/02/20 10:32 KJL (Rec: 09/02/20 11:29 KJL [id number]) Therapy Assessment Status Assessment Status Assessment Status Evaluation/Discharge Summary Evaluation Information Problem Diagnosis CVA Onset 5 weeks ago Additional Evaluation Detail Patient experienced CVA 5 weeks ago resulting in expressive/receptive aphagia. Subjective Information Patient's son present during Query Text:As Reported By Patient/ evaluation, reports no Family deficits in LE or UE that are noticed. Patient reports is able to complete all ADLs independently, is driving, yard work, and completing laundry at home. Patient reports no difficulties with gripping, grasping, opening jars. Prior Level of Function Activity Level (Last 3 Months) Hand Dominance Right Activity of Daily Living Ability Independent Indoor/Home Mobility Independent Community Mobility Independent Stairs Ability Independent Functional Cognition (Planning, Shopping Independent , Taking Medications) Cooking No Cleaning No Laundry Yes Shopping Yes Driving Yes Home Setting Home Type House,Single Level Environmental Barriers Stairs, None Living Situation With Friend Support Available Local Family Support Mobility Assistive Devices (Used Last 3 None Months) Bathroom Environment Bathtub, Standard Bathing Equipment None Toileting Equipment Tall Toilet Comments Additional Prior Level of Function Patient reports lives with a Comments friend in a single level home, is independent with all ADLs, completes all yard work. Pain Assessment T
--- NOTE | 2020-09-27 15:41 | STOPEVAL ---
SPEECH THERAPY RE EVALUATION AND PLAN OF CARE UPDATE: Thank you for referring Bharat Jones to [facility].? The patient is scheduled to be seen for therapy? 2x/week for 4 weeks. Please review, sign, date and return this plan of care CHANELLE. I agree with and certify that the following plan of care is medically necessary. Referring Physician Date Attending Provider: Milad Baker MD Language RE Evaluation Auditory Comprehension Moderate Yes/No Questions (% Accuracy (0 90 -100)) Auditory Comprehension of Two-Step 100 Directives (% Accuracy (0-100)) Response Latency Mild Deficits Factors Limiting Auditory Comprehension Aphasia Overall Auditory Comprehension Ability Moderate Deficits Additional Auditory Comprehension Pt requires extra time and Comments repetitions. Improving overall;pt is achieving goals. Reading Comprehension Name Recognition Yes Numeral Comprehension (% Accuracy (0-100 100 )) Numeral Comprehension Comments able to match single words ( Field of 2): 100% accuracy; ID numbers and letters: 100% accuracy; tested via pointing versus naming due to verbal expression impairment. Letter Comprehension (% Accuracy (0-100) 100 ) Single Word Comprehension (% Accuracy (0 100 -100)) Comprehension: 3-4 Words (% Accuracy (0- 50 100)) Response Latency Moderate Deficits Factors Limiting Reading Comprehension Aphasia Overall Reading Comprehension Ability Moderate Deficits Comments Related to Reading Improving overall;pt is Comprehension achieving goals. Verbal Expression [place] Speech 95% acc Phrase Imitation (% Accuracy (0-100)) 100 Automatic Cued Speech (% Accuracy (0-100 100 )) Open Ended Cued Speech (% Accuracy (0- 60 100)) WH Questions (% Accuracy (0-100)) 60 Confrontational Naming (% Accuracy (0- 60 100)) Stating Object Function (% Accuracy (0- 80 100)) Connected Speech MILD/MOD Factors Limiting Verbal Function Aphasia Overall Verbal Expression Ability Moderate Deficits Comments Related to Verbal Expression When errors increase, pt becomes frustrated and begins excessively attempting to correct. He becomes impulsive and requires cues to stop. Anxiety increases. Improving overall;pt is achieving goals. Wr
--- NOTE | 2020-10-26 11:23 | STOPEVAL ---
SPEECH THERAPY RE EVALUATION AND PLAN OF CARE UPDATE: Thank you for referring Bharat Jones to [facility].? The patient is scheduled to be seen for therapy 2x/week for 4 weeks. Please review, sign, date and return this plan of care CHANELLE. I agree with and certify that the following plan of care is medically necessary. Referring Physician Date Attending Provider: Milad Baker MD Language RE Evaluation Auditory Comprehension Complex Yes/No Questions (% Accuracy (0- 100 100)) Auditory Comprehension of Two-Step 100 Directives (% Accuracy (0-100)) Auditory Comprehension of Complex 75 Directives (% Accuracy (0-100)) Auditory Comprehension of Simple 20 Paragraphs (% Accuracy (0-100)) Additional Auditory Comprehension Pt met short-term goals for Comments auditory comprehension Reading Comprehension Comprehension: 3-4 Words (% Accuracy (0- 100 100)) Comprehension: 5-7 Words (% Accuracy (0- 25 100)) Reading Comprehension Comments decline in auditory comprehension interferes with verbal expression outcomes at times Response Latency Moderate Deficits Factors Limiting Reading Comprehension Aphasia Overall Reading Comprehension Ability mild/mod Comments Related to Reading Pt met short-term goals for Comprehension reading comprehension Verbal Expression Stating Object Function (% Accuracy (0- 70 100)) Sentence Formation Given a Stimulus Word 60 (% Accuracy (0-100)) Comments Related to Verbal Expression Response to wh questions fluctuates due to pt's impaired auditory comprehension as well as anomia. Scores have ranged from 20% to 90%. Pt continues to exhibit paraphasic errors and jargon during name tasks. Pt demonstrates increased ability to self correct. Written Expression Single Word Dictation (% Accuracy (0-100 83 )) Functional Writing Pt is able to write his name, complete address, and phone # Response Latency Moderate Deficits Factors Limiting Written Function Aphasia Overall Written Expression Ability Moderate Deficits ST Clinical Summary Clinical Summary ST Clinical Summary Re evaluation: Pt presents with mild/moderate to moderate expressive and receptive aphasia with impairment in all areas of language, i.e.
--- NOTE | 2020-11-25 17:00 | STOPEVAL ---
SPEECH THERAPY PROGRESS REPORT AND PLAN OF CARE UPDATE: Thank you for referring Bharat Jones to [facility].? The patient is scheduled to be seen for therapy? 2x/week for 4 weeks. Please review, sign, date and return this plan of care CHANELLE. I agree with and certify that the following plan of care is medically necessary. Referring Physician Date Attending Provider: Milad Baker MD RE Language Evaluation Auditory Comprehension Auditory Comprehension of Complex 75 Directives (% Accuracy (0-100)) Auditory Comprehension of Simple 25 Paragraphs (% Accuracy (0-100)) Additional Auditory Comprehension Goals: Comments * Respond to multi step directives with 80% accuracy. NOT MET but is improving and achieving 75% accuracy * Respond to simple paragraph level information with 50% accuracy. Pt presents with max difficulty in this area. Requires information to be presented in shorter amounts for comprehension to be accurate. Reading Comprehension Comprehension: 5-7 Words (% Accuracy (0- 75 100)) Response Latency Moderate Deficits Factors Limiting Reading Comprehension Aphasia Overall Reading Comprehension Ability mild/mod Comments Related to Reading Pt met short-term goals for Comprehension reading comprehension Verbal Expression WH Questions (% Accuracy (0-100)) 90 Stating Object Function (% Accuracy (0- 90 100)) Sentence Formation Given a Stimulus Word 80 (% Accuracy (0-100)) Comments Related to Verbal Expression - intelligibly & appropriately name 8 items in a category with 90% accuracy. MET for very simple categories and with extra time - produce an appropriate sentence when given a target word with 80% accuracy. MET for sentences with < 6 words. As MLU increases, syntax errors are exhibited. New Goals will focus on improving syntactical structure in sentences greater than MLU of 6 with 80% accuracy Written Expression Factors Limiting Written Function Aphasia Overall Written Expression Ability Moderate Deficits Comments Related to Written Expression - Produce single words to
--- NOTE | 2020-11-29 16:59 | PCSTNOTE ---
This treatment is being continued on visit number [id number]. Please see documentation on both accounts to view progress. Completed interventions, outcomes, and problems have been marked as Inactive to facilitate the copying of the Care plan routine for recurring accounts.
== END 2020-11-24 07:48 | disposition home or self-care (01) ==
LOC: ANHST 07:47
PROVIDERS: PCP Family Medicine; Visit Provider Family Medicine
DX: I63.40 Cerebral infarction due to embolism of unspecified cerebral artery (principal); R47.01 Aphasia; R29.898 Other symptoms and signs involving the musculoskeletal system
CPT/HCPCS: 92507; 92523; 97161; 97165

== ENCOUNTER 2021-02-23 11:00 | Outpatient (RCR) | payer MEDICARE, MEDICAID, SELFPAY ==
--- NOTE | 2020-11-29 16:58 | PCSTNOTE ---
The treatment documented on this account is a continuation of the treatment documented on visit number [id number]. Please see documentation on both accounts to view progress. The Plan of Care has been transitioned and updated within the new V#. I have addressed and agree with the discipline specific Problems, Interventions, and Goals for the current certification period. Completed interventions, outcomes, and problems have been marked as Inactive to facilitate the copying of the Care plan routine for recurring accounts.
--- NOTE | 2020-11-29 17:00 | PCSTNOTE ---
COPY OF MOST RECENT REEVALUATION (11/25/20) FROM PREVIOUS ACCOUNT: Bharat Jones Male : 1945 Emr# [id number] 11/25/20 17:00 - ST OP Evaluation by NATALIA Wilhelm Acct Num: [id number] : 1945 Patient Age: 74 SPEECH THERAPY PROGRESS REPORT AND PLAN OF CARE UPDATE: Thank you for referring Bharat Jones to [facility].? The patient is scheduled to be seen for therapy? 2x/week for 4 weeks. Please review, sign, date and return this plan of care CHANELLE. I agree with and certify that the following plan of care is medically necessary. Referring Physician Date Attending Provider: Milad Baker MD RE Language Evaluation Auditory Comprehension Auditory Comprehension of Complex 75 Directives (% Accuracy (0-100)) Auditory Comprehension of Simple 25 Paragraphs (% Accuracy (0-100)) Additional Auditory Comprehension Goals: Comments * Respond to multi step directives with 80% accuracy. NOT MET but is improving and achieving 75% accuracy * Respond to simple paragraph level information with 50% accuracy. Pt presents with max difficulty in this area. Requires information to be presented in shorter amounts for comprehension to be accurate. Reading Comprehension Comprehension: 5-7 Words (% Accuracy (0- 75 100)) Response Latency Moderate Deficits Factors Limiting Reading Comprehension Aphasia Overall Reading Comprehension Ability mild/mod Comments Related to Reading Pt met short-term goals for Comprehension reading comprehension Verbal Expression WH Questions (% Accuracy (0-100)) 90 Stating Object Function (% Accuracy (0- 90 100)) Sentence Formation Given a Stimulus Word 80 (% Accuracy (0-100)) Comments Related to Verbal Expression - intelligibly & appropriately name 8 items in a category with 90% accuracy. MET for very simple categories and with extra time - produce an appropriate sentence when given a target word with 80% accuracy. MET for sentences with < 6 words. As MLU increases, syntax errors are exhibited. New Goals will focus on improving syntactical structure in sentences greater than MLU of 6 with 80% accuracy W
--- NOTE | 2020-12-20 11:29 | PCSTNOTE ---
Patient called & cancelled scheduled appointment this date due to illness
--- NOTE | 2020-12-23 14:55 | STOPEVAL ---
SPEECH THERAPY PROGRESS REPORT AND PLAN OF CARE UPDATE: Thank you for referring Bharat Jones to [facility].? The patient is scheduled to be seen for therapy? 2x/week for 4 weeks. Please review, sign, date and return this plan of care CHANELLE. I agree with and certify that the following plan of care is medically necessary. Referring Physician Date Attending Provider: Milad Baker MD Language Re Evaluation Auditory Comprehension Auditory Comprehension of Complex 100 Directives (% Accuracy (0-100)) Auditory Comprehension of Simple 25 Paragraphs (% Accuracy (0-100)) Factors Limiting Auditory Comprehension Aphasia Overall Auditory Comprehension Ability mild/mod Additional Auditory Comprehension Decline in structured therapy Comments tasks as complexity,details, and steps increase. Pt demonstrates increased auditory comprehension in functional (unstructured) setting. Reading Comprehension Comprehension: 5-7 Words (% Accuracy (0- 80 100)) Response Latency Moderate Deficits Factors Limiting Reading Comprehension Aphasia Overall Reading Comprehension Ability mild/mod Comments Related to Reading Pt met short-term goals for Comprehension reading comprehension Verbal Expression Sentence Formation in Spontaneous Overall pt is able to Conversation formulate sentence upon being given a word with MLU of 6. Pt often struggles with syntactical errors but currently is exhibiting less paraphasic errors and jargon. As MLU increases, syntax accuracy decreases. Connected Speech mild/mod Factors Limiting Verbal Function Aphasia Overall Verbal Expression Ability mild/mod Written Expression Single Word Dictation (% Accuracy (0-100 85 )) Speech Therapy Teaching Speech Therapy Teaching Teaching Topic Swallowing/Communication Topic Component Aphasia As Pertains To Intervention Options,Test Results Recipient(s) of Teaching Patient Learning Preferences Discussion Barriers to Learning Comprehension Readiness to Learn Good Teaching Method(s) Discussion,One-On-One Instruction Response(s) to Teaching Verbalizes Understanding ST Clinical Summary Clinical Summary ST Clinical Summary Re evaluation: Pt presents with mild/moderate expressive and receptive aphasia with
--- NOTE | 2021-01-20 09:35 | STOPEVAL ---
SPEECH THERAPY PROGRESS REPORT AND PLAN OF CARE UPDATE: Thank you for referring Bharat Jones to [facility].? The patient is scheduled to be seen for therapy?2x/week for 4 weeks. Please review, sign, date and return this plan of care CHANELLE. I agree with and certify that the following plan of care is medically necessary. Referring Physician Date Attending Provider: Milad Baker MD Language Evaluation Auditory Comprehension Additional Auditory Comprehension Pt continues to require Comments occasional repetitions and explanations but overall, auditory comprehension is within functional limits. Reading Comprehension Comprehension: 5-7 Words (% Accuracy (0- 90 100)) Reading Comprehension Comments Pt has improved reading ability for 5-7 word sentences . He occasionally appears to have increased difficulty with reading comprehension when he reads out loud which seems to be related to verbal paraphasic errors. When reading silently, comprehension seems even more accurate. STG has been achieved. New goal added. Response Latency Moderate Deficits Factors Limiting Reading Comprehension Aphasia Overall Reading Comprehension Ability Mild Deficits Comments Related to Reading During this reporting period, Comprehension Verbal Expression Comments Related to Verbal Expression Anomia persists but fluctuates ; overall functional verbal expression,i.e. conversational speech continues to improve. Syntactical errors have improved as well. Pt produces syntactically correct sentences in conversational speech with >90% accuracy. Written Expression Comments Related to Written Expression 3-6 word writin+% accuracy. Pt has achieved goal for written expression. New goals have been added to POC Speech Therapy Teaching Speech Therapy Teaching Topic Component Aphasia As Pertains To Behavior Characteristics, Compensatory Strategies, Intervention Options,Language Impairment,Reading Comprehension,Test Results,
--- NOTE | 2021-02-21 16:56 | STOPEVAL ---
SPEECH THERAPY RE EVALUATION AND PLAN OF CARE UPDATE: Thank you for referring Bharat Jones to [facility].? The patient is scheduled to be seen for therapy? 2x/week for 4 weeks. Please review, sign, date and return this plan of care CHANELLE. I agree with and certify that the following plan of care is medically necessary. Referring Physician Date Attending Provider: Milad Baker MD Outpatient RE-Evaluation Language Evaluation Auditory Comprehension Factors Limiting Auditory Comprehension Aphasia Overall Auditory Comprehension Ability Mild Deficits Additional Auditory Comprehension Pt often requires multiple Comments repetitions and/or explanations with moderate to complex instructions during conversation and/or with therapy tasks. Pt has not returned to baseline level of auditory comprehension; remains mildly impaired. Reading Comprehension Reading Comprehension Comments Pt initially requires mod to max verbal and visual cues during reading drill work. Reading tasks are simplified initially to potentially ease frustration. Baseline reading drills are often repeated due to pt's fluctuating ability. Pt requires mod-max verbal cues & extra time to process when an instructions such as draw a box around or put a line over are used. Response Latency Moderate Deficits Factors Limiting Reading Comprehension Aphasia Overall Reading Comprehension Ability Mild Deficits Comments Related to Reading It was noted that without Comprehension treatment, skill level decreased. Verbal Expression Sentence Formation in Spontaneous Mild Deficits Conversation Connected Speech Mild Deficits Response Latency Mild Deficits Factors Limiting Verbal Function Aphasia Overall Verbal Expression Ability Mild Deficits Comments Related to Verbal Expression Pt demonstrates ability to appropriately participate in a 15 minute conversation. Occasional paraphasic errors are exhibited. Pt continues to require moderate cueing when word finding errors occur. Pt 's frustration intolerance interfe
--- NOTE | 2021-03-08 10:16 | PCSTNOTE ---
This treatment is being continued on visit number [id number]. Please see documentation on both accounts to view progress. Completed interventions, outcomes, and problems have been marked as Inactive to facilitate the copying of the Care plan routine for recurring accounts.
== END 2021-02-27 23:59 | disposition home or self-care (01) ==
LOC: ANHST 11:00
PROVIDERS: PCP Family Medicine; Visit Provider Family Medicine
DX: I63.40 Cerebral infarction due to embolism of unspecified cerebral artery (principal); R47.01 Aphasia; R29.898 Other symptoms and signs involving the musculoskeletal system
CPT/HCPCS: 92507

== ENCOUNTER 2021-03-09 11:00 | Outpatient (RCR) | payer MEDICARE, MEDICAID, SELFPAY ==
--- NOTE | 2021-03-08 10:16 | PCSTNOTE ---
The treatment documented on this account is a continuation of the treatment documented on visit number [id number]. Please see documentation on both accounts to view progress. The Plan of Care has been transitioned and updated within the new V#. I have addressed and agree with the discipline specific Problems, Interventions, and Goals for the current certification period. Completed interventions, outcomes, and problems have been marked as Inactive to facilitate the copying of the Care plan routine for recurring accounts.
--- NOTE | 2021-03-08 10:28 | PCSTNOTE ---
copied: most recent reevaluation Bharat Jones Male : 1945 Emr# [id number] 02/21/21 16:56 - ST OP Evaluation by NATALIA Wilhelm Acct Num: [id number] : 1945 Patient Age: 75 SPEECH THERAPY RE EVALUATION AND PLAN OF CARE UPDATE: Thank you for referring Bharat Jones to [facility].? The patient is scheduled to be seen for therapy? 2x/week for 4 weeks. Please review, sign, date and return this plan of care CHANELLE. I agree with and certify that the following plan of care is medically necessary. Referring Physician Date Attending Provider: MD PATRICK Bond Outpatient RE-Evaluation Language Evaluation Auditory Comprehension Factors Limiting Auditory Comprehension Aphasia Overall Auditory Comprehension Ability Mild Deficits Additional Auditory Comprehension Pt often requires multiple Comments repetitions and/or explanations with moderate to complex instructions during conversation and/or with therapy tasks. Pt has not returned to baseline level of auditory comprehension; remains mildly impaired. Reading Comprehension Reading Comprehension Comments Pt initially requires mod to max verbal and visual cues during reading drill work. Reading tasks are simplified initially to potentially ease frustration. Baseline reading drills are often repeated due to pt's fluctuating ability. Pt requires mod-max verbal cues & extra time to process when an instructions such as draw a box around or put a line over are used. Response Latency Moderate Deficits Factors Limiting Reading Comprehension Aphasia Overall Reading Comprehension Ability Mild Deficits Comments Related to Reading It was noted that without Comprehension treatment, skill level decreased. Verbal Expression Sentence Formation in Spontaneous Mild Deficits Conversation Connected Speech Mild Deficits Response Latency Mild Deficits Factors Limiting Verbal Function Aphasia Overall Verbal Expression Ability Mild Deficits Comments Related to Verbal Expression Pt demonstrates ability to appropriately participate in a 15 minute conversation. Occasional paraphasic errors are exhibited. Pt continues to require moderate cueing
--- NOTE | 2021-03-08 10:28 | PCSTNOTE ---
Patient called & cancelled scheduled appointments on 02/28 and 03/02 due to illness.
--- NOTE | 2021-03-10 08:01 | PCSTNOTE ---
Patient did not show up for scheduled appointment on 03/09/21.
--- NOTE | 2021-04-19 08:32 | PCSTNOTE ---
SPEECH THERAPY DISCHARGE: Attending Provider: Milad Baker MD Patient:Bharat Jones Date of :1945 Patient has not returned for any further treatments since 03/09/2021; Patient?s initial visit was on 08/25/2020 and he had a total of 49 visits. Overall, many goals were achieved for auditory & reading comprehension and verbal & written expression throughout the course of treatment. On initial evaluation, the patient, who was very anxious and easily upset, presented with moderate aphasia with impairment in all areas of language, i.e. verbal & written expression and auditory and reading comprehension. Verbal expression was characteristic of fluent jargon, paraphasic errors, neologisms, and occasional press of speech. Error recognition was intermittent as was error correction. In written expression, he was able to write numbers and letters to dictation but single words with only 57% accuracy. Auditory comprehension: he answered complex yes/no questions with 25% accuracy and followed 2 step directions with 50% accuracy. In reading comprehension, Clive was unable to identify numbers and letters with >30% accuracy, but comprehended single words with 75% accuracy and a 3-4 word directive with 50% accuracy. Steady progress was achieved throughout the course of the 49 visits. However, towards the end of treatment, Clive was becoming increasingly anxious. He was unable to attend a week of treatment which revealed a slight decline in ability in reading comprehension. He was having medical issues with lower extremity swelling and pain which may have been contributing to his anxiety and decline. At discharge, he demonstrated mild expressive and receptive aphasia with impairment in the areas of verbal & written expression and reading comprehension. The pt continued to progress albeit slowly. Auditory comprehension: the pt demonstrated ability to comprehend functional information in conversational speech. He occasionally required repetition and elaboration with more complex or lengthy information but this occurred less than 10% of the time during a session. Verbal Expression: Pt was able to produce syntactically correct sentences. Anomia and paraphasic errors were present but occurred < 25% of the time in a 15-20 minute conversation. Pt continued to require mod verbal cues to use of compensatory strategies when anomia occurred. Pt reported that he had been able to increasingly participate in conversations with his friends & family. In reading comprehension, pt was able to comprehend 5-7 word sentences with 90% accuracy. It was been determined that pt often struggled with reading due to verbal expression impairment. Pt was able to comprehend written information of 8-10 words with 50% accuracy without cues and 75% with cues. Skill level appeared to fluctuate when treatment sessions were missed. In writing tasks, pt was able to accurately write up to 6 letter words with 90% accuracy but 7 letter words was at 50% accuracy. Pt demonstrated ability to write simple 2-3 word phrases with 90%+ accuracy. Overall, pt had been progressing & continued to achieve short term goals until he technically not attending therapy and discontinued his own treatment. Thank you for referring this patient to [facility]. Please review, sign, date and return this discharge summary CHANELLE. I have been updated about the patient's current status and I agree with discharge from the above service at this time. Referring Physician Date
--- NOTE | 2021-04-19 10:47 | PCSTNOTE ---
SPEECH THERAPY DISCHARGE: Patient:Bharat Jones Date of :1945 Attending Provider: Milad Baker MD Patient has not returned for any further treatments since 03/09/2021, Patient?s initial visit was on 08/25/20 & he had a total of 49 visits. On the initial evaluation, the very anxious and frustrated pt presented with moderate aphasia with impairment in all areas of language, i.e. verbal & written expression and auditory and reading comprehension. Verbal expression was characteristic of fluent jargon, paraphasic errors, neologisms, and occasional press of speech. Error recognition was intermittent as is error correction. Written expression: pt was able to copy & write numbers and letters to dictation with 100% accuracy but only wrote single words to dictation with 57% accuracy. Auditory comprehension: Clive was able to accurately respond to complex level yes/no question with 25% accuracy and moderate level information with 80% accuracy. Reading comprehension: He was only able to identify numbers with 29% accuracy and letters with 0% accuracy but interestingly, he was able to match words to pictures with 100% accuracy, comprehend single words with 75% accuracy, and 3-4 word directive with 50% accuracy. Steady but slow progression was achieved through the long course of treatment. Pt?s anxiety and frustration occasionally interfered. Upon discharge, the pt demonstrated mild expressive and receptive aphasia with impairment in the areas of verbal & written expression and reading comprehension. The pt continued to progress albeit slowly. Auditory comprehension: the pt demonstrates ability to comprehend functional information in conversational speech. He occasionally requires repetition and elaboration with more complex or lengthy information but this occurs less than 10% of the time. Verbal Expression: Pt is able to produce syntactically correct sentences. Anomia and paraphasic errors are present but occur < 25% of the time in a 15-20 minute conversation. Pt continues to require mod verbal cues to use of compensatory strategies when anomia occurs. Pt reported he has been able to increasingly participate in conversations with his friends & family. In reading comprehension, pt is able to comprehend 5-7 word sentences with 90% accuracy. It had been determined Clive often struggles with reading due to verbal expression impairment. Pt is able to comprehend written information of 8-10 words with 50% accuracy without cues and 75% with cues. Skill level appears to fluctuate when treatment sessions are missed. In writing tasks, pt is able to accurately write up to 6 letter words with 90% accuracy but 7 letter words at 50% accuracy. Pt demonstrates ability to write simple 2-3 word phrases with 90%+ accuracy. Overall, pt was progressing & continued to achieve short term goals; It was felt the pt would benefit from additional skilled speech therapy services to address his noted language impairments and provide skilled teaching for a HEP to maintain level of function for interactions at home and in his environment; however, pt declined and opted to discontinued therapy due to medical issues involving swelling and pain in his lower extremity. Thank you for referring this patient to [facility]. Please review, sign, date and return this discharge summary CHANELLE. I have been updated about the patient's current status and I agree with discharge from the above service at this time. Referring Physician Date
== END 2021-04-20 13:43 | disposition home or self-care (01) ==
LOC: ANHST 11:00
PROVIDERS: PCP Family Medicine; Visit Provider Family Medicine
DX: I63.40 Cerebral infarction due to embolism of unspecified cerebral artery (principal); R47.01 Aphasia; R29.898 Other symptoms and signs involving the musculoskeletal system
CPT/HCPCS: 92507

== ENCOUNTER 2021-11-08 10:00 | Outpatient (RCR) | payer MEDICARE, MEDICAID, SELFPAY ==
--- NOTE | 2021-11-06 12:00 | STOPEVAL1 ---
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 Clive reports knowing what he wants to communicate, but not being able to consistently find the words. His friend joined him in the session and reported that he gets frustrated very easily and often walks away from conversations. Clive completed an informal language evaluation to determine strengths and deficits in auditory comprehension, reading comprehension, and verbal expression. In auditory comprehension, patient demonstrated strengths in identification of objects/pictures/body parts, answering yes/no questions, and following one to two step directions. Patient demonstrated deficits in following 3-step directions, complex directives, and simple paragraph retention. In reading comprehension, Clive could read single words with ease, but demonstrated difficulty in reading 4+ word directions and comprehending those directions . In verbal expression, patient automatic and automatic cued speech was intact, but patient demonstrated deficits in sentence repetition, open ended cued speech, and answering wh-questions. Throughout the evaluation, patient displayed infrequent bursts of frustration and would refuse to complete the rest of the task. After some education on compensatory strategies, he would quickly agree to complete further tasks in the evaluation. Patient's connected speech would often include several verbal paraphasias; often the word would not be at all connected with the intended word, but would occasionally start with the same letter or sound. Recommend skilled ST 1-2x/week for 4 weeks to target communication deficits by use of compensatory strategies for increased safety and quality of life. Thank you for referring your patient to [facility]. Plan of Care Interventions Treatment of Language Treatment Frequency and .1-.2x/week for 4 weeks Duration
--- NOTE | 2021-11-08 16:26 | STOPDC ---
Assessment and note entered by NATALIA Aponte Evaluation Information Assessment Status Discharge Reported Pain Level Pain Score 0: Self Report Pain Score 0: Self Report Assessment ST Clinical Summary THERAPY SESSION AND DISCHARGE SUMMARY This patient was seen for a speech/language evaluation on 11/06/21 at the [facility] however he requested a change to [facility] as it is closer to home. 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 Patient reported that his physician requested he return to Speech Therapy however he expressed today that he agreed with Blanca, that additional Speech Therapy would not be beneficial and he requested discharge. Today the patient's plan of care from Saturday's evaluation was reviewed. He demonstrated 50% accuracy on first trial given 2 step body part directions. He followed written moderate-level body part directions with 50% accuracy indicating that having access to the written words did not improve his ability to follow body part directions. He refused to participate when presented with simple 'story,' stating he just does not understand these stories as they are not important and he knows it is difficult for him to comprehend this information. He named 50% of common pictured objects on first trial, improving to 70% accuracy with therapist sentence or phonemic cues. Patient described two issues that he experiences with his comprehension/expression: 1. He has trouble remembering the names of four grandsons close in age whose names all start with K and 2. He is unable to use his [employer] card and credit cards due to the written instructions. His friend and assistant manager quality management, Suzanne, was present; the following recommendations were made: 1. Snap photos of the grandchildren and place in photo album or binder with written name under each picture, one child o
== END 2021-11-09 16:18 | disposition home or self-care (01) ==
LOC: ANHST 10:00
PROVIDERS: PCP Family Medicine; Visit Provider Family Medicine
DX: I69.320 Aphasia following cerebral infarction (principal)
CPT/HCPCS: 92507; 92523

== ENCOUNTER 2023-11-13 08:59 | Emergency (ER) | payer MEDICARE, SELFPAY ==
--- NOTE | ~2023-11-13 | CT_ITS ---
EXAMINATION: CT diagnostic chest wo con DATE: 11/13/2023 10:52 INDICATION: dyspnea, COVID (+), evaluate PNA vs edema TECHNIQUE: Computed tomography (CT) of the chest was performed without intravenous contrast. Addition al 3D reconstructions utilizing coronal maximum intensity projection (MIP) were performed. Automated exposure control and iterative reconstruction technique were employed. The dose-length product was 30 7.28 mGy-cm. COMPARISON: None FINDINGS: Calcified nodules in the right middle and lower lobes along with calcified right hilar lymph nodes an d multiple small splenic calcific lesions, all consistent with old granulomatous disease. Mild depend ent atelectasis in the bilateral lower lobes. No pneumonia, pulmonary edema, pleural effusion or pneu mothorax. Heart size is normal. Atherosclerotic coronary artery calcifications. Aortic valve and mitr al annular calcification. No pericardial effusion. Thoracic aorta is normal in caliber. No pathologic ally enlarged thoracic lymphadenopathy. Multiple small calcified gallstones in the decompressed gallb ladder and along the cystic duct. Severe spondylosis at the cervicothoracic junction. Mild thoracic s pondylosis with bridging osteophytes at multiple levels consistent with diffuse idiopathic skeletal h yperostosis (DISH). Metallic density along the anterior margin of the C5 vertebral body likely for mo re cephalad nonvisualized anterior spinal fusion. IMPRESSION: 1. Mild dependent atelectasis and sequela of old granulomatous disease. No other acute cardiopulmonar y disease. 2. Cholelithiasis. Reviewed, dictated and finalized at location B. IMPRESSION: 1. Mild dependent atelectasis and sequela of old granulomatous disease. No othe r acute cardiopulmonary disease. 2. Cholelithiasis.
--- NOTE | ~2023-11-13 | XR_ITS ---
EXAMINATION: XR chest 2V DATE: 11/13/2023 10:01 INDICATION: Dyspnea. TECHNIQUE: Frontal and lateral views of the chest were obtained. COMPARISON: Chest single view 07/20/2020 FINDINGS: There are interstitial opacities at the lung bases. Calcified right lung nodules and calcif ied right hilar lymph nodes are consistent with old granulomatous disease. No pleural effusion or pne umothorax. The heart size is normal. There are changes of anterior fusion procedure in cervical spine . IMPRESSION: 1. Interstitial opacities at the lung bases, consistent with mild atelectasis/scarring versus pneumon ia. Reviewed, dictated and finalized at location A. IMPRESSION: 1. Interstitial opacities at the lung bases, consistent with mild atelectasis/s carring versus pneumonia.
[2023-11-13 09:06] VITALS: BP 155/112; PULSE 82; RESP 18; TEMP 36.3; O2SAT 100
--- NOTE | 2023-11-13 09:09 | ECG_ITS ---
Test Date: 2023-11-13 09:13:36 Measurements Intervals [place] Rate: 73 P: 0 IN: 0 QRS: -31 QRSD: 90 T: 57 QT: 379 QTc: 419 Interpretive Statements ATRIAL FIBRILLATION LEFT AXIS DEVIATION BORDERLINE R WAVE PROGRESSION, ANTERIOR LEADS BASELINE ARTIFACT- I, II, III, AVR, AVL, AVF, V1-V6 ABNORMAL ECG No previous ECG available for comparison Electronically Signed On 11-13-2023 10:21:04 CDT by Aj Alcazar D.O.
[2023-11-13 09:33] LABS: Basophils Absolute Auto 0.1 K/mm3 (0.0-0.1); Basophils Percent Auto 0.7 % (0.2-1.2); Eosinophils Absolute Auto 0.1 K/mm3 (0-0.3); Eosinophils Percent Auto 1.1 % (0-4.4); Hematocrit 49.4 % (42.0-52.0); Hemoglobin 17.1 g/dL (14.0-18.0); Immature Granulocyte Absolute 0.06 K/mm3 (0.00-0.031); Immature Granulocyte Percent A 0.5 % (0-0.5); Lymphocytes Absolute Auto 0.93 K/mm3 (0.9-3.2); Lymphocytes Percent Auto 7.7 % (18.3-44.2); Mean Corpuscular HGB Conc 34.6 g/dl (32-36); Mean Corpuscular Hemoglobin 33.1 pg (26-34); Mean Corpuscular Volume 95.6 fl (80-100); Mean Platelet Volume 10.9 fl (7.4-10.4); Monocytes Absolute Auto 1.8 K/mm3 (0.1-0.6); Monocytes Percent Auto 14.7 % (2.6-8.5); Neutrophils Absolute Auto 9.2 K/mm3 (1.3-6.7); Neutrophils Percent Auto 75.3 % (45.5-73.1); Platelet Count Result 248 k/mm3 (150-375); Red Blood Count 5.17 M/mm3 (4.6-6.20); White Blood Count 12.1 K/mm3 (4.5-10.0)
--- NOTE | 2023-11-13 09:33 | ED.SOB ---
HPI - SOB/Dyspnea General Chief Complaint: Shortness of Breath/Dyspnea Stated Complaint: SOB Time Seen by Provider: 11/13/23 09:15 Source: patient Mode of arrival: ambulatory Limitations: no limitations History of Present Illness HPI Narrative: this is a 77-year-old male with PMH of AFib, DM type 2, HTN, HLD, CVA with aphasia who presents to the ED with chief complaint of shortness of breath that began last night. States that whenever he gets up to do something he gets extremely winded. States that is difficult to carry on a conversation without becoming short of breath. States that it got worse after he woke up from bed this morning so he came to the ER. Patient is generally unsure about his medical history and what medications he takes. He attributes this to his stroke but is unsure of when he had a stroke. Alert, oriented x4. Denies chest pain, leg swelling, palpitations, lightheadedness, syncope, fall. 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) Diabetes type 2, controlled DM w/o complication type II Elevated fasting glucose Erectile dysfunction Gout HLD (hyperlipidemia) HTN (hypertension) Insomnia Left hand weakness Mumps Osteoarthritis Surgical History Surgical History H/O cataract extraction H/O hand surgery finger joint replacements History of carpal tunnel release History of eyelid surgery History of knee replacement BL knees History of neck surgery History of repair of rotator cuff Hx of eye surgery BL lens implants Family History Family History Father Family history of lung cancer, Onset Age: 61 Family history of throat cancer, Onset Age: 61 Mother Hypertension HLD (hyperlipidemia) History of open heart surgery TIA (transient ischemic attack) Social History Social History Smoking status: Never smoker Second hand tobacco smoke exposure: No Alcohol intake: never Alcohol use details: rarely Substance use: never Substance use type: does not use Other substance usage details: 3 drinks 07/20, unusual for pt Living arrangements: alone Gender identity (if verbalized by the patient): Male Spiritual care concerns: No Exam Narrative: GENERAL: Well-appearing, well-nourished, and in no acute distress. HEAD: Normocephalic, atraumatic. EYES: PERRLA and EOMI. ENT: Nares clear, no rhinorrhea or epistaxis. Mucous membranes moist. Oropharynx without tonsillar hypertrophy exudate or other lesions. NECK: Supple. No adenopathy or masses. CHEST: No overt respiratory distress. Speaks in 4-5 word sentences. No adventitious breath sounds auscultated. HEART: Irregularly irregular. Normal rate. No murmur heard. Normal peripheral pulses. ABDOMEN: Soft, nontender, nondistended, normal active bowel sounds. MSK: Normal range of motion. No edema. SKIN: Warm, dry, no rash. NEURO: Alert and oriented x4. No focal deficits. mild expressive aphasia which is reported to be his baseline. PSYCH: Normal mood and affect. Course Vital Signs Vital signs: Vital Signs Temperature 97.4 F L 11/13/23 09:06 Pulse Rate 82 11/13/23 09:06 Respiratory Rate 18 11/13/23 09:06 Blood Pressure 155/112 H 11/13/23 09:06 Pulse Oximetry 100 11/13/23 09:06 Oxygen Delivery Room Air 11/13/23 09:06 Temperature 97.7 F 11/13/23 12:00 Pulse Rate 79 11/13/23 12:00 R
[2023-11-13 09:46] VITALS: BP 146/82; PULSE 85; RESP 20; O2SAT 100
[2023-11-13 09:46] LABS: Alanine Aminotransferase 28 U/L (6-50); Albumin Level 4.8 g/dL (3.5-5.1); Alkaline Phosphatase 96 U/L (38-126); Anion Gap 14 mmol/L (4-12); Aspartate Amino Transferase 27 U/L (17-59); Bilirubin,Total 0.8 mg/dL (0.2-1.3); Blood Urea Nitrogen 23 mg/dL (9-20); Calcium 9.9 mg/dL (8.4-10.2); Carbon Dioxide 23 mmol/L (22-30); Chloride 93 mmol/L (98-107); Estimated CRCL calculation 48 ml/min; Estimated Glomerular Filt Rate 54; Glucose 154 mg/dL (65-110); Potassium 3.9 mmol/L (3.4-5.0); Sodium 130 mmol/L (137-145)
[2023-11-13 09:57] LABS: Troponin I 0.013 ng/mL (0.000-0.034)
[2023-11-13 10:03] LABS: INR 1.2; Prothrombin Time 15.9 Seconds (11.1-14.7)
[2023-11-13 10:04] LABS: Partial Thromboplastin Time 35.2 Seconds (22.3-36.8)
[2023-11-13 10:07] LABS: Influenza A QL RT-PCR Negative (Negative); Influenza B QL RT-PCR Negative (Negative); RSV RNA, RT-PCR Negative (Negative); SARS-CoV-2 RNA PCR Positive (Negative)
[2023-11-13 10:11] LABS: Device ROOM AIR; Fractional Inspired Oxygen 21 %; HCO3 VBG 20.4 mEq/l (24.0-30.0); PCO2 VBG 36.1 mmHg (42.0-48.0); PO2 VBG 30.2 mmHg (35.0-45.0); pH VBG 7.371 (7.300-7.400)
[2023-11-13 10:17] LABS: NT Pro B Type Natriuretic Pept 2420 pg/mL (19.9-100)
[2023-11-13 10:33] LABS: D Dimer 0.29 ug/mL (<0.48)
[2023-11-13 11:00] VITALS: BP 144/69; PULSE 85; RESP 18; O2SAT 99
[2023-11-13 12:00] VITALS: BP 165/74; PULSE 79; RESP 18; TEMP 36.5; O2SAT 98
== END 2023-11-13 12:00 | disposition home or self-care (01) ==
PROVIDERS: Emergency Medicine; Emergency Provider Physician Assistant; PCP Family Medicine
DX: U07.1 COVID-19 (principal); I48.91 Unspecified atrial fibrillation; E11.9 Type 2 diabetes mellitus without complications; I10 Essential (primary) hypertension; E78.5 Hyperlipidemia, unspecified; I69.320 Aphasia following cerebral infarction; Z96.653 Presence of artificial knee joint, bilateral
CPT/HCPCS: 36415; 71046; 71250; 80053; 82803; 83880; 84484; 85025; 85380; 85610; 85730; 87637; 93005; 99284

== ENCOUNTER 2024-01-29 11:00 | Outpatient (RCR) | payer MEDICARE, SELFPAY ==
--- NOTE | 2023-12-13 08:57 | OPREHPOC ---
Outpatient Therapy Plan of Care This is a Multidisciplinary Plan of Care that may contain components documented by all disciplines (PT, OT, and ST.)
--- NOTE | 2023-12-13 14:41 | STOPEVAL1 ---
Assessment and note entered by Alison Rey, BRICK WHEELER Reported Pain Level Pain Score 0: Self Report Assessment ST Clinical Summary SPEECH AND LANGUAGE EVALUATION This patient reports that he had a CVA over three years ago and that he attended here at [facility] and he felt he had gone as far as I could. He recently started a medicine to reduce agitation and his physician requested he return for additional speech therapy to see if his attention and focus will have improved enough to contribute to improved communication skills. Results suggest patient has moderate receptive aphasia causing him to have to request a repeat of stimulus in order to catch the response. Additionally, he exhibits moderate expressive aphasia characterized as inconsistent ability to name real objects, respond to verbal and visual cueing, and respond to open-ended questions. Patient does seem to express awareness when he cannot understand a stimulus and when he cannot offer a specific word/response. Patient is able to participate in superficial conversation and express his frustration however, he cannot speak specifically about most topics. Speech was judged to be 100% intelligible. Patient will be seen twice weekly to address receptive/expressive language skills focusing on comprehending moderate to complex information and expressing more specific information verbally. Patient and sister were informed about plan of care and were in agreement with recommendations. Thank you for this referral. Plan of Care Interventions Treatment of Language ST Services Indicated Yes Treatment Frequency and 2xweeky/4 weeks. Duration These treatments will address the objective and functional deficits as defined above. The patient will be advanced safely and appropriately in order for the patient to progress towards his/her prior level of function. Additional exercises will be introduced and as well as a comprehensive home exercise program upon discharge, if needed, ?to ensure carryover of functional gains achieved in the clinic. This treatment plan has been reviewed and agreement upon by the patient.
--- NOTE | 2024-01-09 16:14 | STOPPROG ---
Assessment and note entered by Alison Rey FIELD CANE SCALER HELPER Evaluation Information Assessment Status Progress Assessment ST Clinical Summary PROGRESS NOTE AND TREATMENT SUMMARY The patient has been seen for an initial evaluation and four treatment sessions focusing on improving both receptive and expressive language skills. Patient, himself, reports that although he can make fluent, appropriate comments (such as, I know it but I can't say it. It's my brain, ), he also has difficulty expressing specific words. During receptive tasks, patient reports that he can understand short statements/questions, however if there is more information than in a short statement/question, he automatically states, It's too long and indicates that he just cannot understand it. He also randomly will say he thinks he must have a hearing problem (as if that is why he cannot understand what is being said), but then he also states it is not his hearing (as if he understands it is the language impairment secondary to CVA). When therapist keeps stimuli short, patient seems to understand however, when therapist lengthen statements or offers even short paragraph information (i.e. 3 short statements concerning one idea), patient automatically protests, stating it is too long and occasionally stated that it then makes him feel stupid. Occasionally, this frustration contributes to discontinuing tasks and moving on to the next task. Therapy has been modified away from structured tasks to a more unstructured session. Because he complains that he cannot recall names of friends, his friend has brought in photos of friends that they see frequently. He has recalled up to 80% of names independently but the one name he initially could not recall is still difficult to recall independently. He has allowed us to move sequentially through therapist offering short statements, and then longer statements, and asked if therapist stated X (a word that was either in the statement or not in the statement) and patient was asked Did I state X? (which was either stated or was a new word). Patient initially complained the statements were too long, and then also commented with a related statement until he understood the task. He then has demonstrated improved ability to pay attention to my statements and agree or disagree correctly. Statements then increased in length and patient was asked the above mentioned question. When that improved, he was given lengthier statements and then asked questions about the statement (i.e What was her name? or What day of the week did I state? ). Today he was able to respond to short statements but with two pieces of information (for example, the two previously mentioned questions were asked after the statement: On Saturday, Graciela is going to the grocery store. ) Patient expressed that although he finds this task frustrating, he actually feels these related tasks have been forcing him to pay closer attention to details and has been facilitating improved comprehension. During these tasks, if patient has exhibited difficulty with the word-finding, therapist has assisted with either drawings or alphabet letters to assist with recall and these have been effective 50% of the time. Results suggest, and patient's comments suggest he is benefitting from direct Speech Therapy at this time. Patient will be seen for an additional 4 visits to further address first, auditory comprehension and processing, and then word- retrieval. Plan of Care Interventions Treatment of Speech ST Services Indicated Yes Treatment Frequency and 1-2x weekly for four additional visits Duration These treatments will address the objective and functional deficits as defined above. The patient will be advanced safely and appropriately in order for the patient to progress towards his/her prior level of function. Additional exercises will be introduced and as well as a comprehensive home exercise program upon discharge, if needed, ?to ensure carryover of functional gains achieved in the clinic. This treatment plan has been reviewed and agreement upon by the patient.
--- NOTE | 2024-01-30 11:42 | STOPDC ---
Assessment and note entered by Alison Rey, HOCKEY SCOUT Reported Pain Level Pain Score 0: Self Report Assessment ST Clinical Summary DISCHARGE SUMMARY AND TREATMENT SUMMARY Patient was seen for an outpatient evaluation and seven sessions of Speech Therapy. Patient admitted that he has had a temper in the past and made only so much progress in prior direct Speech Therapy at this facility several years ago, however he stated that he began a new medication to help him from becoming so agitated with his aphasia that his physician wondered if he would benefit from a new course of therapy. Patient was observed to be quite verbal, often repeating the same stories or saying the same types of comments he has made in previous sessions. Of note, however is the difficulty he has stating particular words. For example, today, he was able to name 90% of pictured actions but only named 50% of the objects that accompany the actions (for example, he could state the pictured man was shaving but unable to state razor, unless the object seemed to go with the action as in watching TV (as opposed to shaving with a razor or using a razor to shave. ) At the same time, patient would be told short paragraph stories and asked questions, such as The children can't play outdoors today because it is raining. So they have to play in the house. When asked a question such as, what are the children doing? Patient almost always personalized it and could state something such as, My kids aren't. They are all grown up rather than responding to the corresponding question. Additionally, patient had stated frequently at the beginning that addressing direct Speech Therapy goals (i.e. structured yes/no questions, naming common, pictured objects, etc.) made him feel stupid and he avoided those tasks. Patient expressed how much he enjoyed Speech Therapy and was glad to come in to sessions; he also stated he felt he was speaking more and speaking about more varied subjects by the end of treatment episode however minimal progress was made in structured tasks due to patient's personalization of stimulus materials and avoidance of tasks he deemed more difficult. Patient is being discharged with goals partially met and with his report that he feels he is speaking more and communicating more specifically than he had prior to these direct Speech Therapy sessions. At the same time, he makes the comment, I know I'm not right in the head so he is indicating he realizes that he continues to suffer from aphasia, characterized as difficulty recalling specific words and names of people. Further direct Speech Therapy is not indicated at this time. Plan of Care ST Services Indicated No
== END 2024-02-18 15:12 | disposition home or self-care (01) ==
LOC: ANHST 11:00
PROVIDERS: PCP Family Medicine
DX: I69.320 Aphasia following cerebral infarction (principal)
CPT/HCPCS: 92507; 92523